=== PATIENT | female | born 1960 | race Caucasian/White ===

== ENCOUNTER 2018-01-05 10:36 | Day surgery (SDC) | END 2018-01-05 17:54 | disposition home or self-care (01) ==

== ENCOUNTER 2018-12-31 05:47 | Day surgery (SDC) | payer OTHER ==
[~2018-12-31] VITALS: Ht 162.6 cm; Wt 137.0 kg
[2018-12-31] VITALS (18 sets, daily range): BP systolic 89–135; BP diastolic 41–82; PULSE 72–84; RESP 12–29; Ht 162.6 cm; Wt 137.0 kg
[~2018-12-31 05:47] MED LIST: AMLO5TAB4 PO; ASPI325T30 PO; FLUT16SP17 NASAL; HYDR25TA6 PO; INSU100V3 IJ; LANT3I SC; LISI10TA2 PO; METF-849 PO; MULTI PO; OMEG-135 PO; PRAV10TA43 PO; TRAM50TA PO
[2018-12-31] MEDS ORDERED: POLYMYXIN/BACITRACIN 1L IRRIG ONE (06:52)
[2018-12-31] MEDS ORDERED: POVIDONE IODINE 10% 28.4 GM OINT ONE (06:52)
[2018-12-31] MEDS ORDERED: BUPIVACAINE 0.25% (MPF) 30 ML INJ ONE (06:52)
--- NOTE | 2018-12-31 07:38 | PREAC ---
Date/Time of Note Date/Time of Note DATE: 12/31/18 TIME: 07:35 Anesthesia Eval and Record Evaluation Time Pre-Procedure Interview DATE: 12/31/18 TIME: 07:35 Age 58 Sex female NPO: 8 hrs Preoperative diagnosis Lt carpal tunnel Planned procedure Lt carpal tunnel release Past Medical History Past Medical History: Includes Cardio: HTN, Dyslipidemia Endo: Diabetes Pulm: COPD Neuro: CVA GI: Morbid obesity Surgery & Anesthesia Issues No known issue Meds Anticoagulation: Yes Beta Tashia within 24 hr: No Reason Beta Tashia not given: Pt. not on B-Tashia Reported Medications [place]-3 Fatty Acids/Fish Oil (Fish Oil 1,000 mg Capsule) 1 Each Capsule, 1 EACH PO DAILY, CAP 01/05/18 Multivitamins* (Theragran*) 1 Tab Tab, 1 TAB PO DAILY, TAB 01/05/18 Tramadol Hcl* (Ultram*) 50 Mg Tablet, 50 MG PO DAILY PRN for PAIN, TAB 01/05/18 Pravastatin Sodium* (Pravastatin Sodium*) 10 Mg Tablet, 5 MG PO HS, TAB 01/05/18 Metformin* (Glucophage*) 500 Mg Tab, 500 MG PO DAILY, #90 TAB 01/05/18 Lisinopril* (Lisinopril*) 10 Mg Tablet, 10 MG PO DAILY, #30 TAB 01/05/18 Hydrochlorothiazide* (Hydrochlorothiazide*) 25 Mg Tab, 25 MG PO DAILY, #30 TAB 01/05/18 Insulin Glargine* (Lantus*) 100 Unit/Ml Soln, 100 UNIT SC BID, #1 VIAL 01/05/18 Insulin Regular, Human (Humulin R) 100 Unit/1 Ml Vial, 10 UNIT IJ AC MEALS, VIAL 01/05/18 Fluticasone Propionate* (Fluticasone Propionate* Nasal) 50 Mcg/[place] - 16 Gm [place].susp, 1 SPRAY NASAL DAILY, #1 BOTTLE TO EACH NOSTRIL 01/05/18 Aspirin* (Aspirin*) 325 Mg Tablet, 325 MG PO DAILY, TAB 01/05/18 Amlodipine Besylate* (Norvasc*) 5 Mg Tablet, 5 MG PO DAILY, TAB 01/05/18 Meds reviewed: Yes Allergies Coded Allergies: Sulfa (Sulfonamide Antibiotics) (Verified Allergy, Severe, 01/05/18) naproxen (Verified Allergy, Severe, 01/05/18) pseudoephedrine (Verified Allergy, Severe, 01/05/18) sitagliptin (Verified Allergy, Severe, 01/05/18) sulfamethoxazole (Verified Allergy, Severe, 01/05/18) terfenadine (Verified Allergy, Severe, 01/05/18) trimethoprim (Verified Allergy, Severe, 01/05/18) Allergies Reviewed: Yes Labs/Studies Labs Reviewed: Reviewed by anesthesiologist test: N/A Studies: ECG Pre-procedure Exam Last vitals Vital Signs Date Temp Pulse Resp B/P (MAP) Pulse Ox O2 O2 Flow FiO2 Time Delivery Rate 12/31/18 98.4 84 18 93/62 (72) 96 Room Air 06:19 Airway: Adequate mouth opening, Adequate thyromental dist Mallampati: Mallampati III Teeth: Normal Lung: Normal Heart: Normal ASA Physical Status ASA physical status: 3 Emergency: None Planned Anesthetic General/MAC: MAC Planned Pain Management Parenteral pain med, Local by surgeon Pre-operative Attestations Prior to commencing anesthesia and surgery, the patient was re-evaluated, there was verification of: *The patient's identity *The results of appropriate recent lab work and preoperative vital signs *The above evaluation not changing prior to induction *Anesthetic plan, risk benefits, alternative and complications discussed with patient/family; questions answered; patient/family understands, accepts and wishes to proceed. LILY CORREIA MD Dec 31, 2018 07:38
[2018-12-31] MEDS ORDERED: MIDAZOLAM 1 MG/ML 2 ML INJ ONE (07:49)
[2018-12-31] MEDS ORDERED: FENTAnyl 50 MCG/ML VIAL ONE (07:49)
--- NOTE | 2018-12-31 07:50 | HPN ---
Date/Time of Note Date/Time of Note DATE: 12/31/18 TIME: 07:49 Interval H&P Admission Note Pt. seen H&P reviewed: No system changes YUDITH KENYON MD Dec 31, 2018 07:50
[2018-12-31] MEDS ORDERED: BUPIVACAINE 0.5% (SDV) 30 ML INJ ONE (08:19)
[2018-12-31] MEDS ORDERED: LIDOCAINE 0.5% (SDV) 50 ML INJ ONE (08:19)
[2018-12-31] MEDS ORDERED: PROPOFOL 40 ML ONE (09:02)
[2018-12-31] MEDS ORDERED: CEFAZOLIN 1 GM INJ ONE (09:02)
[2018-12-31] MEDS ORDERED: LIDOCAINE 2% (SDV) 5 ML INJ ONE (09:02)
[2018-12-31] MEDS ORDERED: ONDANSETRON 4 MG INJ ONE (09:03)
--- NOTE | 2018-12-31 09:11 | PAC ---
Date/Time of Note Date/Time of Note DATE: 12/31/18 TIME: 09:10 Post-Anesthesia Notes Post-Anesthesia Note Last documented vital signs Vital Signs Date Temp Pulse Resp B/P (MAP) Pulse Ox O2 O2 Flow FiO2 Time Delivery Rate 12/31/18 98.0 08:27 12/31/18 84 18 93/62 (72) 96 Room Air 06:19 Activity: WNL Respiratory function: WNL Cardiovascular function: WNL Mental status: Baseline Pain reasonably controlled: Yes Hydration appropriate: Yes Nausea/Vomiting absent: Yes Comments BP:95/57, P:78, Spo2:100%, T:98,9 LILY CORREIA MD Dec 31, 2018 09:11
--- NOTE | 2018-12-31 09:28 | PDOCDIS ---
Discharge Instructions CONDITION [id number] Patient Condition: [id number] Good HOME CARE INSTRUCTIONS: [id number] Diet Instructions: [id number] Reduced Calorie ACTIVITY: [id number] Activity Restrictions: [id number] Do not operate Machinery [id number] Bathing Restrictions: [id number] Keep left hand covered with dressing till . May then remove dressing. Keep incision clean/dry/intact. Apply antibiotic ointment TID to incision. FOLLOW UP/APPOINTMENTS Follow-up Plan F/U with Dr. [facility] in 2-3 weeks. YUDITH KENYON MD Dec 31, 2018 09:28
[2018-12-31] MEDS ORDERED: MEPERIDINE 25 MG INJ IV PRN (09:30)
[2018-12-31] MEDS ORDERED: ONDANSETRON 4 MG INJ IV PRN (09:30)
[2018-12-31] MEDS ORDERED: METOCLOPRAMIDE 10 MG INJ IV PRN (09:30)
[2018-12-31] MEDS ORDERED: FENTAnyl 50 MCG/ML VIAL IV PRN (09:30)
[2018-12-31] MEDS ORDERED: HYDROmorphONE 1 MG/5 ML IV SYRINGE IV PRN ×2 (09:30)
--- NOTE | 2018-12-31 09:43 | OPR ---
Date/Time of Note Date/Time of Note DATE: 12/31/18 TIME: 09:31 Operative Report Procedure Date: Dec 31, 2018 Preoperative Diagnosis Left carpal tunnel syndrome Postoperative Diagnosis Left carpal tunnel syndrome Operation/Procedure Performed Left carpal tunnel release/neurolysis Surgeon see signature line Public Relations Professional None Anesthesia Type: MAC Estimated Blood Loss: minimal Transfusion none Specimen None Grafts/Implants none Tubes/Drains None Complications none Pt Condition Post Procedure: stable Disposition: PACU Procedure Description Indications for procedure: This is a 58-year-old female with long-standing history of bilateral carpal tunnel syndrome confirmed with electrodiagnostic studies. she previously underwent a right carpal tunnel release with satisfactory improvement of her preoperative symptoms. She now underwent left carpal tunnel release due to ongoing symptoms consistent with carpal tunnel syndrome including severe pain and paresthesias that wake her up at night accompanied with weakness. The risks and benefits of the above operation were explained in great detail to the patient and she agreed to undergo the above surgery. Description of procedure: She was brought to the operating room and placed supine on the operating table. She was placed under conscious sedation/MAC. Her left hand was placed on the hand table and an incision was marked just ulnar to the hand crease along the line between the middle and ring fingers from the wrist crease towards the base of the thumb/Morrison's cardinal line.. After the patient's hand and forearm where prepped and draped under standard sterile fashion, blood was exsanguinated from her left upper extremity and the blood pressure tourniquet was put up to 250. Half percent Marcaine/half percent lidocaine was then infiltrated into the marked incision. The incision was then cut down to the level of the subcutaneous fat. Given the patient's morbid obesity/large body habitus, there was also excessive subcutaneous fatty tissue that had to be explored until the very thick transverse ligament/carpal tunnel ligament was reached. The transverse ligament was then opened up until the m edian nerve was visualized. The decompression and the release of the transverse ligament was then extended distally to the Morrison's cardinal line and proximally to the wrist crease. A Inna elevator was used to confirm that there was no further compression of the median nerve proximally or distally. The wound was copiously irrigated with antibiotic solution. The incision was then reapproximated in a single layer using a simple running Monocryl 2-0 suture. 4 x 4 fluffs were applied to the incision. The hand was then wrapped with a soft wrap and an Piter wrap was applied on top of the soft wrap. The blood pressure cuff was then deflated. The patient was then woken up and transferred to the recovery room in stable condition. The patient was awake and alert in the recovery room and moving her hand with sensation present without discomfort. YUDITH KENYON MD Dec 31, 2018 09:43
== END 2018-12-31 11:40 | disposition home or self-care (01) ==
LOC: SDS 05:47
PROVIDERS: ATTEND Neurological Surgery
DX: G56.02 Carpal tunnel syndrome, left upper limb (principal); I10 Essential (primary) hypertension; E11.9 Type 2 diabetes mellitus without complications; J44.9 Chronic obstructive pulmonary disease, unspecified; Z86.73 Personal history of transient ischemic attack (TIA), and cerebral infarction without residual deficits; Z79.82 Long term (current) use of aspirin; Z79.84 Long term (current) use of oral hypoglycemic drugs; Z79.4 Long term (current) use of insulin; E66.01 Morbid (severe) obesity due to excess calories; Z68.43 Body mass index [BMI] 50.0-59.9, adult
CPT/HCPCS: 64721; 82962; J0690; J2250; J2405; J3010; Z7512; Z7610